=== PATIENT | female | born 1980 | race Caucasian/White ===

== ENCOUNTER → 2018-09-11 | Outpatient (CLI) | payer OTHER | LOC: FIMAGING 08:18 | PROVIDERS: ATTEND Obstetrics & Gynecology | DX: O09.512 Supervision of elderly primigravida, second trimester (principal); Z3A.19 19 weeks gestation of pregnancy ==

== ENCOUNTER → 2018-11-28 | Outpatient (CLI) | payer OTHER | LOC: FIMAGING 08:46 | PROVIDERS: ATTEND Obstetrics & Gynecology | DX: O09.513 Supervision of elderly primigravida, third trimester (principal); Z3A.31 31 weeks gestation of pregnancy ==

== ENCOUNTER 2019-02-01 02:27 | Inpatient (IN) | payer OTHER ==
[2019-02-01 03:29] LABS: PLATELET COUNT 151 10^3/uL (150-400)
--- NOTE | 2019-02-01 05:30 | PDGENHP ---
History and Physical - Chief Complaint presented with decreased movement - History of Present Illness 39 G1 at 40w2d by 9 wk US c/w 24 d cycle, presented to L&D with decreased movement, which has resolved since arrival here. Here - noted to have elevated blood pressures. Good FM, no VB, no LOF. Has had migraines recently, and feels one might be coming on this morning. NO vis changes. No epigastric or RUQ pain. No edema. care with [facility] since 9 weeks. c/b: +AMA - neg NIPT and level 2 US +Uterine fibroids - largest 4 cm at 20 wk US. History Information - Allergies/Home Medication List Allergies/Adverse Reactions: ibuprofen Allergy (Verified 02/01/19 06:47) runny nose itchy eyes I have personally reviewed and updated: family history, medical history, social history, surgical history - Past Medical History GERD (leg fracture age 11) - Surgical History Additional surgical history: oral surgery 2010 - Family History Additional family history: M - at 48 from ovarian cancer, also had depression, high cholesterol. 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 Review of Systems Review of Systems: ROS: 10pt was reviewed & negative except for what was stated in HPI & below Physical Exam Physical Exam: 36.7 61 18 130/90 BPs since 5: 127-160 / 80 - 90 FHR: 135, reactive, Cat 1 toco: some irritability Constitutional: no apparent distress, appears nourished, not in pain Eyes: PERRL, anicteric sclera, EOMI Ears, Nose, Mouth, Throat: moist mucous membranes, hearing normal, ears appear normal, no oral mucosal ulcers Cardiovascular: regular rate and rhythym, no murmur, rub, or gallop Respiratory: no respiratory distress, no rales or rhonchi, clear to auscultation Gastrointestinal: normoactive bowel sounds, soft, non-tender abdomen, no palpable masses Genitourinary: no bladder fullness, other (term gravid uterus, nontender. US confirmed cephalic presentation of fetus) Skin: warm, normal color, mottled Musculoskeletal: full muscle strength, no muscle tenderness Neurologic: AAOx3, sensation intact bilaterally Psychiatric: interacting appropriately, not anxious Lymph, Heme, Immunologic: no cervical LAD Lab Data & Imaging Review 02/01/19 03:15 02/01/19 03:15 WBC 12.44 10^3/uL (3.80-9.50) H 02/01/19 03:15 RBC 4.52 10^6/uL (4.18-5.33) 02/01/19 03:15 Hgb 14.5 g/dL (12.6-16.3) 02/01/19 03:15 Hct 41.8 % (38.0-47.0) 02/01/19 03:15 MCV 92.5 fL (81.5-99.8) 02/01/19 03:15 MCH 32.1 pg (27.9-34.1) 02/01/19 03:15 MCHC 34.7 g/dL (32.4-36.7) 02/01/19 03:15 RDW 13.9 % (11.5-15.2) 02/01/19 03:15 Plt Count 151 10^3/uL (150-400) 02/01/19 03:15 MPV 10.6 fL (8.7-11.7) 02/01/19 03:15 Neut % (Auto) 66.7 % (39.3-74.2) 02/01/19 03:15 Lymph % (Auto) 21.8 % (15.0-45.0) 02/01/19 03:15 Peñuel[place] % (Auto) 6.4 % (4.5-13.0) 02/01/19 03:15 Eos % (Auto) 3.6 % (0.6-7.6) 02/01/19 03:15 Baso % (Auto) 0.3 % (0.3-1.7) 02/01/19 03:15 Nucleat RBC Rel Count 0.0 % (0.0-0.2) 02/01/19 03:15 Absolute Neuts (auto) 8.29 10^3/uL (1.70-6.50) H 02/01/19 03:15 Absolute Lymphs (auto) 2.71 10^3/uL (1.00-3.00) 02/01/19 03:15 Absolute Monos (auto) 0.80 10^3/uL (0.30-0.80) 02/01/19 03:15 Absolute Eos (auto) 0.45 10^3/uL (0.03-0.40) H 02/01/19 03:15 Absolute Basos (auto) 0.04 10^3/uL (0.02-0.10) 02/01/19 03:15 Absolute Nucleated RBC 0.00 10^3/uL (0-0.01) 02/01/19 03:15 Immature Gran % 1.2 % (0.0-1.1) H 02/01/19 03:15 Immature Gran # 0.15 10^3/uL (0.00-0.10) H 02/01/19 03:15 BUN 8 mg/dL (7-23) 02/01/19 03:15 Creatinine 0.5 mg/dL (0.6-1.0) L 02/01/19 03:15 Estimated GFR > 60 02/01/19 03:15 Uric Acid 4.1 mg/dL (2.5-6.8) 02/01/19 03:15 Total Bilirubin 0.6 mg/dL (0.1-1.4) 02/01/19 03:15 Conjugated Bilirubin 0.0 mg/dL (0.0-0.5) 02/01/19 03:15 Unconjugated Bilirubin 0.6 mg/dL (0.0-1.1) 02/01/19 03:15 AST 77 IU/L (14-46) H 02/01/19 03:15 ALT 106 IU/L (9-52) H 02/01/19 03:15 Lactate Dehydrogenase 468 IU/L (313-618) 02/01/19 03:15 Ur Random Creatinine 56.4 mg/dL 02/01/19 04:15 U Random Total Protein 13 mg/dL (0-11) H 02/01/19 04:15 Assessment & Plan Assessment: 39 G1 at 40w2d with elevated BPs and mildly elevated LFTs. Does not meet criteria for preeclampsia as p/c = 0.23. GBS pos Plan - report given to Dr. Duvall who will assume care now at 0730. Pt ate breakfast. Will start induction now - pt agreeable to POC. Buccal misoprostil ordered. PCN ordered for GBS pos. Consider repeating HELLP labs later today. Tara Camacho MD, FACOG
[2019-02-01] MEDS ORDERED: LIDOCAINE 1% 300 MG/30 ML SDV SC PRN (06:39)
[2019-02-01] MEDS ORDERED: MISOPROSTOL 200 MCG TAB PR PRN (06:39)
[2019-02-01] MEDS ORDERED: OLIVE OIL 118 ML BTL MISC PRN (06:39)
[2019-02-01] MEDS ORDERED: EPSOM SALT 454 GM TP PRN (06:39)
[2019-02-01] MEDS ORDERED: OXYTOCIN/RINGERS LACTATE 1,000 ML IV PRN (06:39)
[2019-02-01] MEDS ORDERED: IBUPROFEN 600 MG TAB PO PRN (06:39)
[2019-02-01] MEDS ORDERED: PENICILLIN G POTASSIUM 5,000,000 UNIT in D5W 150 ML IV ONE (06:39)
[2019-02-01] MEDS ORDERED: LIDOCAINE 1% 300 MG/30 ML SDV ONE (07:18)
[2019-02-01] MEDS ORDERED: TERBUTALINE SULFATE 1 MG/ML VIAL ONE (07:19)
[2019-02-01] MEDS ORDERED: OXYTOCIN 10 UNIT/ML VIAL ONE (07:19)
[2019-02-01] MEDS ORDERED: AMMONIA AROMATIC 1 EACH AMP IH ONE (07:19)
[2019-02-01] MEDS ORDERED: MISOPROSTOL 200 MCG TAB ONE (07:19)
[2019-02-01] MEDS ORDERED: OLIVE OIL 118 ML BTL MISC ONE (07:19)
[2019-02-01] MEDS ORDERED: MISOPROSTOL 50 MCG CAP PO PRN (07:23)
[2019-02-01] MEDS: LR 1,000 ML IV PRN (07:49)
[2019-02-01 10:01] LABS: PLATELET COUNT 158 10^3/uL (150-400)
--- NOTE | 2019-02-01 11:41 | OBPROG ---
Labor Progress Note Assessment/Plan: Assessment: Plan: Subjective/Intrapartum Course: 02/01/19 11:39 patient feeling significant cramping and abdominal tightening. labs reviewed. discussed abnormal lfts. bp 130-140/70. status reassuring. discussed indications to start magnesium sulfate. denies headache, changes in vision and ruq pain. will check patient in 30 minutes and discussed next steps. Objective: 02/01/19 09:38 02/01/19 09:38 Patient ABO/Rh B POSITIVE 02/01/19 07:11 Uric Acid 3.7 mg/dL (2.5-6.8) 02/01/19 09:38 Total Bilirubin 0.6 mg/dL (0.1-1.4) 02/01/19 03:15 Conjugated Bilirubin 0.0 mg/dL (0.0-0.5) 02/01/19 03:15 Unconjugated Bilirubin 0.6 mg/dL (0.0-1.1) 02/01/19 03:15 AST 82 IU/L (14-46) H 02/01/19 09:38 ALT 118 IU/L (9-52) H 02/01/19 09:38 Lactate Dehydrogenase 596 IU/L (313-618) 02/01/19 09:38 - SVE Membranes: Intact - Contraction Pattern Assessment Current Contraction Pattern: Irregular Oxytocin Orders Assessment - Pre-Induction/Augmentation Assessment Gestational Age: 40 week(s) and 2 day(s) ICD10 Worksheet Patient Problems: Problems Problem Status Onset Pre-eclampsia, severe Acute (spontaneous vaginal delivery) Acute
[2019-02-01] MEDS: PENICILLIN G POTASSIUM 2,500,000 UNIT in D5W 150 ML IV SCH ×3 (12:10→19:56)
--- NOTE | 2019-02-01 13:21 | OBPROG ---
Labor Progress Note Assessment/Plan: Assessment: Plan: Subjective/Intrapartum Course: 02/01/19 11:39 patient feeling significant cramping and abdominal tightening. labs reviewed. discussed abnormal lfts. bp 130-140/70. status reassuring. discussed indications to start magnesium sulfate. denies headache, changes in vision and ruq pain. will check patient in 30 minutes and discussed next steps. 02/01/19 13:19 patient feeling more contractions. sve 1/50/-2. possible srom. had gush of clear fluid but no pooling and no leaking from cervix with valsalva. discussed options. regino too frequently for another dose of cytotec. cook catheter placed without difficulty. status reassuring. denies headache and changes in vision. blood pressures stable. will augment with pitocin if needed. plans epidural. Objective: 02/01/19 09:38 02/01/19 09:38 Patient ABO/Rh B POSITIVE 02/01/19 07:11 Uric Acid 3.7 mg/dL (2.5-6.8) 02/01/19 09:38 Total Bilirubin 0.6 mg/dL (0.1-1.4) 02/01/19 03:15 Conjugated Bilirubin 0.0 mg/dL (0.0-0.5) 02/01/19 03:15 Unconjugated Bilirubin 0.6 mg/dL (0.0-1.1) 02/01/19 03:15 AST 82 IU/L (14-46) H 02/01/19 09:38 ALT 118 IU/L (9-52) H 02/01/19 09:38 Lactate Dehydrogenase 596 IU/L (313-618) 02/01/19 09:38 - SVE Dilation (cm): 1 Effacement (%): 50 Station: -2 Membranes: SROM (possible) - Contraction Pattern Assessment Current Contraction Pattern: Irregular Oxytocin Orders Assessment - Pre-Induction/Augmentation Assessment Gestational Age: 40 week(s) and 2 day(s) ICD10 Worksheet Patient Problems: Problems Problem Status Onset Pre-eclampsia, severe Acute (spontaneous vaginal delivery) Acute
[2019-02-01] MEDS ORDERED: LR 500 ML IV PRN (13:34)
[2019-02-01] MEDS ORDERED: OXYTOCIN/RINGERS LACTATE 500 ML IV SCH (14:00)
[2019-02-01] MEDS ORDERED: fentaNYL 2MCG/ML/BUP 0.1% RTU 100 ML BAG EP ONE (16:23)
[2019-02-01] MEDS ORDERED: BUPIVACAINE 0.25% 10 ML SDV ONE (16:23)
[2019-02-01] MEDS ORDERED: fentaNYL 100 MCG/2 ML INJ ONE (16:23)
[2019-02-01] MEDS ORDERED: PHENYLEPHRINE HCL 100 MCG/ML SYR ONE (16:24)
[2019-02-01] MEDS ORDERED: PHENYLEPHRINE HCL 100 MCG/ML SYR IVP PRN (17:06)
[2019-02-01] MEDS ORDERED: ONDANSETRON 4 MG/2 ML VIAL IVP PRN (17:06)
--- NOTE | 2019-02-01 17:08 | PDANEPAE ---
ANE Past Medical History - Pulmonary History Hx Sleep Apnea: No ANE Review of Systems Review of Systems: ANE Patient History - Allergies Allergies/Adverse Reactions: ibuprofen Allergy (Verified 02/01/19 06:47) runny nose itchy eyes - Smoking Hx Smoking Status: Never smoked - Alcohol Use Alcohol Use: None ANE Labs/Vital Signs - Labs Result Diagrams: 02/01/19 09:38 02/01/19 09:38 - Vital Signs Height: 162.56 cm Weight: 78.925 kg ANE Physical Exam - Airway Neck exam: FROM Mallampati Score: Class 1 Mouth exam: normal dental/mouth exam - Pulmonary Pulmonary: no respiratory distress - Cardiovascular Cardiovascular: regular rate and rhythym - ASA Status ASA Status: II (mild PIH) ANE Anesthesia Plan Anesthesia Plan: epidural
[2019-02-01] MEDS ORDERED: LR 500 ML IV SCH (17:30)
[2019-02-01] MEDS ORDERED: fentaNYL 2MCG/ML/BUP 0.1% RTU 100 ML EP SCH (17:30)
--- NOTE | 2019-02-01 17:35 | OBPROG ---
Labor Progress Note Assessment/Plan: Assessment: Plan: Subjective/Intrapartum Course: 02/01/19 11:39 patient feeling significant cramping and abdominal tightening. labs reviewed. discussed abnormal lfts. bp 130-140/70. status reassuring. discussed indications to start magnesium sulfate. denies headache, changes in vision and ruq pain. will check patient in 30 minutes and discussed next steps. 02/01/19 13:19 patient feeling more contractions. sve /-2. possible srom. had gush of clear fluid but no pooling and no leaking from cervix with valsalva. discussed options. regino too frequently for another dose of cytotec. cook catheter placed without difficulty. status reassuring. denies headache and changes in vision. blood pressures stable. will augment with pitocin if needed. plans epidural. 02/01/19 17:33 patient comfortable with epidural. cook catheter removed. /-2 with bulging bag of water . arom. large amount of clear fluid. contractions have spaced out. will start pitocin for augmentation. had a few late decelerations following arom. status overall very reassuring. will place iupc if needed. will recheck pih labs. blood pressures stable. denies headache or changes in vision. Objective: 02/01/19 09:38 02/01/19 09:38 Patient ABO/Rh B POSITIVE 02/01/19 07:11 Uric Acid 3.7 mg/dL (2.5-6.8) 02/01/19 09:38 Total Bilirubin 0.6 mg/dL (0.1-1.4) 02/01/19 03:15 Conjugated Bilirubin 0.0 mg/dL (0.0-0.5) 02/01/19 03:15 Unconjugated Bilirubin 0.6 mg/dL (0.0-1.1) 02/01/19 03:15 AST 82 IU/L (14-46) H 02/01/19 09:38 ALT 118 IU/L (9-52) H 02/01/19 09:38 Lactate Dehydrogenase 596 IU/L (313-618) 02/01/19 09:38 - SVE Dilation (cm): 3, 4 Effacement (%): 75 Station: -2 Membranes: AROM - Contraction Pattern Assessment Current Contraction Pattern: Irregular Oxytocin Orders Assessment - Pre-Induction/Augmentation Assessment Gestational Age: 40 week(s) and 2 day(s) ICD10 Worksheet Patient Problems: Problems Problem Status Onset Mild preeclampsia Acute
[2019-02-01 18:05] LABS: PLATELET COUNT 149 10^3/uL (150-400)
[2019-02-01] MEDS ORDERED: MAGNESIUM SULF 4 GM/WATER 100 ML IV ONE (18:48)
[2019-02-01] MEDS ORDERED: CALCIUM GLUC 10% 1 GM/10 ML VIAL IVP PRN (18:48)
--- NOTE | 2019-02-01 18:48 | OBPROG ---
Labor Progress Note Assessment/Plan: Assessment: Plan: Subjective/Intrapartum Course: 02/01/19 11:39 patient feeling significant cramping and abdominal tightening. labs reviewed. discussed abnormal lfts. bp 130-140/70. status reassuring. discussed indications to start magnesium sulfate. denies headache, changes in vision and ruq pain. will check patient in 30 minutes and discussed next steps. 02/01/19 13:19 patient feeling more contractions. sve 50/-2. possible srom. had gush of clear fluid but no pooling and no leaking from cervix with valsalva. discussed options. regino too frequently for another dose of cytotec. cook catheter placed without difficulty. status reassuring. denies headache and changes in vision. blood pressures stable. will augment with pitocin if needed. plans epidural. 02/01/19 17:33 patient comfortable with epidural. cook catheter removed. 75/-2 with bulging bag of water . arom. large amount of clear fluid. contractions have spaced out. will start pitocin for augmentation. had a few late decelerations following arom. status overall very reassuring. will place iupc if needed. will recheck pih labs. blood pressures stable. denies headache or changes in vision. 02/01/19 18:46 contractions spaced out and there was another late deceleration so IUPC and FECG placed without difficulty. pitocin started and is now at 2 mu. status reasuring. labs checked again. lfts still elevated so will start magneisum sulfate. discussed with patient. blood pressures stable. denies headache and changes in vision. patient resting comfortably Objective: 02/01/19 17:55 02/01/19 17:55 Patient ABO/Rh B POSITIVE 02/01/19 07:11 Uric Acid 4.2 mg/dL (2.5-6.8) 02/01/19 17:55 Total Bilirubin 0.6 mg/dL (0.1-1.4) 02/01/19 17:55 Conjugated Bilirubin 0.0 mg/dL (0.0-0.5) 02/01/19 17:55 Unconjugated Bilirubin 0.6 mg/dL (0.0-1.1) 02/01/19 17:55 AST 76 IU/L (14-46) H 02/01/19 17:55 ALT 104 IU/L (9-52) H 02/01/19 17:55 Lactate Dehydrogenase 532 IU/L (313-618) 02/01/19 17:55 - SVE Dilation (cm): 4 Effacement (%): 80 Station: -2 Membranes: AROM Amniotic Fluid Color: Clear - Contraction Pattern Assessment Current Contraction Pattern: Irregular - Procedures Non-surgical Procedures: FSE, IUPC Oxytocin Orders Assessment - Pre-Induction/Augmentation Assessment Gestational Age: 40 week(s) and 2 day(s) ICD10 Worksheet Patient Problems: Problems Problem Status Onset Mild preeclampsia Acute
--- NOTE | 2019-02-01 19:48 | OBPROG ---
Labor Progress Note Assessment/Plan: Assessment: Plan: Subjective/Intrapartum Course: 02/01/19 11:39 patient feeling significant cramping and abdominal tightening. labs reviewed. discussed abnormal lfts. bp 130-140/70. status reassuring. discussed indications to start magnesium sulfate. denies headache, changes in vision and ruq pain. will check patient in 30 minutes and discussed next steps. 02/01/19 13:19 patient feeling more contractions. sve 1/50/-2. possible srom. had gush of clear fluid but no pooling and no leaking from cervix with valsalva. discussed options. regino too frequently for another dose of cytotec. cook catheter placed without difficulty. status reassuring. denies headache and changes in vision. blood pressures stable. will augment with pitocin if needed. plans epidural. 02/01/19 17:33 patient comfortable with epidural. cook catheter removed. 3/75/-2 with bulging bag of water . arom. large amount of clear fluid. contractions have spaced out. will start pitocin for augmentation. had a few late decelerations following arom. status overall very reassuring. will place iupc if needed. will recheck pih labs. blood pressures stable. denies headache or changes in vision. 02/01/19 18:46 contractions spaced out and there was another late deceleration so IUPC and FECG placed without difficulty. pitocin started and is now at 2 mu. status reasuring. labs checked again. lfts still elevated so will start magneisum sulfate. discussed with patient. blood pressures stable. denies headache and changes in vision. patient resting comfortably 02/01/19 19:45 patient still comfortable. pitocin is at 4 mu. patient had two variable decels so i went to examine patient. sve 4-5/80/+1. right after exam fhts had decel to 60s with return to baseline followed by a period of decreased variability. patient was repositioned and fhts returned to normal. long discussion was had with the patient and fob about fhts. will continue pitocin augmentation with close observations. discussed indications for c section. contractions not adequate yet but there is good descent of the head. Objective: 02/01/19 17:55 02/01/19 17:55 Patient ABO/Rh B POSITIVE 02/01/19 07:11 Uric Acid 4.2 mg/dL (2.5-6.8) 02/01/19 17:55 Total Bilirubin 0.6 mg/dL (0.1-1.4) 02/01/19 17:55 Conjugated Bilirubin 0.0 mg/dL (0.0-0.5) 02/01/19 17:55 Unconjugated Bilirubin 0.6 mg/dL (0.0-1.1) 02/01/19 17:55 AST 76 IU/L (14-46) H 02/01/19 17:55 ALT 104 IU/L (9-52) H 02/01/19 17:55 Lactate Dehydrogenase 532 IU/L (313-618) 02/01/19 17:55 - SVE Dilation (cm): 4, 5 Effacement (%): 80 Station: +1 Membranes: AROM Amniotic Fluid Color: Clear - Contraction Pattern Assessment Current Contraction Pattern: Irregular - Procedures Non-surgical Procedures: FSE, IUPC Oxytocin Orders Assessment - Pre-Induction/Augmentation Assessment Gestational Age: 40 week(s) and 2 day(s) ICD10 Worksheet Patient Problems: Problems Problem Status Onset Mild preeclampsia Acute
--- NOTE | 2019-02-01 21:51 | OBPROG ---
Labor Progress Note Assessment/Plan: Assessment: Plan: Subjective/Intrapartum Course: 02/01/19 11:39 patient feeling significant cramping and abdominal tightening. labs reviewed. discussed abnormal lfts. bp 130-140/70. status reassuring. discussed indications to start magnesium sulfate. denies headache, changes in vision and ruq pain. will check patient in 30 minutes and discussed next steps. 02/01/19 13:19 patient feeling more contractions. sve 1/50/-2. possible srom. had gush of clear fluid but no pooling and no leaking from cervix with valsalva. discussed options. regino too frequently for another dose of cytotec. cook catheter placed without difficulty. status reassuring. denies headache and changes in vision. blood pressures stable. will augment with pitocin if needed. plans epidural. 02/01/19 17:33 patient comfortable with epidural. cook catheter removed. 3/75/-2 with bulging bag of water . arom. large amount of clear fluid. contractions have spaced out. will start pitocin for augmentation. had a few late decelerations following arom. status overall very reassuring. will place iupc if needed. will recheck pih labs. blood pressures stable. denies headache or changes in vision. 02/01/19 18:46 contractions spaced out and there was another late deceleration so IUPC and FECG placed without difficulty. pitocin started and is now at 2 mu. status reasuring. labs checked again. lfts still elevated so will start magneisum sulfate. discussed with patient. blood pressures stable. denies headache and changes in vision. patient resting comfortably 02/01/19 19:45 patient still comfortable. pitocin is at 4 mu. patient had two variable decels so i went to examine patient. sve 4-5/80/+1. right after exam fhts had decel to 60s with return to baseline followed by a period of decreased variability. patient was repositioned and fhts returned to normal. long discussion was had with the patient and fob about fhts. will continue pitocin augmentation with close observations. discussed indications for c section. contractions not adequate yet but there is good descent of the head. 02/01/19 21:48 patient comfortable. occasional decels but overall status reassuring. sve 8/90/+1 pitocin is at 8. had 2 variable decels with exam and right after then returned to reassuring. will continue to watch closely Objective: 02/01/19 17:55 02/01/19 17:55 Patient ABO/Rh B POSITIVE 02/01/19 07:11 Uric Acid 4.2 mg/dL (2.5-6.8) 02/01/19 17:55 Total Bilirubin 0.6 mg/dL (0.1-1.4) 02/01/19 17:55 Conjugated Bilirubin 0.0 mg/dL (0.0-0.5) 02/01/19 17:55 Unconjugated Bilirubin 0.6 mg/dL (0.0-1.1) 02/01/19 17:55 AST 76 IU/L (14-46) H 02/01/19 17:55 ALT 104 IU/L (9-52) H 02/01/19 17:55 Lactate Dehydrogenase 532 IU/L (313-618) 02/01/19 17:55 - SVE Dilation (cm): 8 Effacement (%): 90 Station: +1 Membranes: AROM Amniotic Fluid Color: Clear - Contraction Pattern Assessment Current Contraction Pattern: Irregular - Procedures Non-surgical Procedures: FSE, IUPC - AP Antepartum Course: 02/01/19 21:51 initiated care a [facility] at 8 weeks. fibroids noted. negative innatal testing. normal level 2 us. presented to l and d in the middle of then night for decreased movement. found to have elevated blood pressures and elevated lfts. Oxytocin Orders Assessment - Pre-Induction/Augmentation Assessment Gestational Age: 40 week(s) and 2 day(s) ICD10 Worksheet Patient Problems: Problems Problem Status Onset Mild preeclampsia Acute
--- NOTE | 2019-02-01 23:14 | OBDEL ---
Info Type: Vaginal Presentation at Delivery: Vertex L&D Analgesia/Anesthesia Type: Epidural GBS+: Yes Antibiotic Used for + GBS: Ampicillin Intrapartum Medications: Generic Name Dose Route Start Last Admin Trade Name Freq PRN Reason Stop Dose Admin Lactated Ringer's 1,000 mls @ 0 mls/hr 02/01/19 06:39 02/01/19 07:49 Lr IV 02/02/19 06:38 1,000 mls PRN PRN Administration SEE PROTOCOL CONDITIONS Protocol Per Protocol Penicillin G Potassium 2,500, 155 mls @ 155 mls/hr 02/01/19 11:00 02/01/19 19 :56 000 unit/ Dextrose IV 03/03/19 10:59 155 mls Q4H JAYE Administration Protocol Misoprostol 50 mcg 02/01/19 07:23 02/01/19 07:43 Cytotec PO 07/31/19 07:22 50 mcg PRN PRN Administration unfavorable cervix Discontinued Medications Generic Name Dose Route Start Last Admin Trade Name Freq PRN Reason Stop Dose Admin Penicillin G Potassium 5,000, 160 mls @ 160 mls/hr 02/01/19 06:39 02/01/19 07 :49 000 unit/ Dextrose IV 02/01/19 07:38 160 mls ONCE ONE Administration Protocol - Hospital Course Intrapartum: 02/01/19 11:39 patient feeling significant cramping and abdominal tightening. labs reviewed. discussed abnormal lfts. bp 130-140/70. status reassuring. discussed indications to start magnesium sulfate. denies headache, changes in vision and ruq pain. will check patient in 30 minutes and discussed next steps. 02/01/19 13:19 patient feeling more contractions. sve 150/-2. possible srom. had gush of clear fluid but no pooling and no leaking from cervix with valsalva. discussed options. regino too frequently for another dose of cytotec. cook catheter placed without difficulty. status reassuring. denies headache and changes in vision. blood pressures stable. will augment with pitocin if needed. plans epidural. 02/01/19 17:33 patient comfortable with epidural. cook catheter removed. /-2 with bulging bag of water . arom. large amount of clear fluid. contractions have spaced out. will start pitocin for augmentation. had a few late decelerations following arom. status overall very reassuring. will place iupc if needed. will recheck pih labs. blood pressures stable. denies headache or changes in vision. 02/01/19 18:46 contractions spaced out and there was another late deceleration so IUPC and FECG placed without difficulty. pitocin started and is now at 2 mu. status reasuring. labs checked again. lfts still elevated so will start magneisum sulfate. discussed with patient. blood pressures stable. denies headache and changes in vision. patient resting comfortably 02/01/19 19:45 patient still comfortable. pitocin is at 4 mu. patient had two variable decels so i went to examine patient. sve 4-5/80/+1. right after exam fhts had decel to 60s with return to baseline followed by a period of decreased variability. patient was repositioned and fhts returned to normal. long discussion was had with the patient and fob about fhts. will continue pitocin augmentation with close observations. discussed indications for c section. contractions not adequate yet but there is good descent of the head. 02/01/19 21:48 patient comfortable. occasional decels but overall status reassuring. sve 8/90/+1 pitocin is at 8. had 2 variable decels with exam and right after then returned to reassuring. will continue to watch closely 02/01/19 23:13 severe variable decels with pushing. pushed with 6 contractions and delivered Indications for Delivery: Preeclampsia Severe Vaginal Delivery - Delivery Provider Delivery Physician/CNM: Ilana Duvall - Labor and Delivery Onset of Contractions Date: 02/01/19 Onset of Contractions Time: 17:04 Onset of Contractions Type: Induced Rupture of Membranes Date: 02/01/19 Rupture of Membranes Time: 17:04 Rupture of Membranes Type: Artificial Amniotic Fluid Color: Clear Dilation Complete Date: 02/01/19 Dilation Complete Time: 22:13 Placenta Delivery Date: 02/01/19 Placenta Delivery Time: 22:43 Total Hours of Labor: 5 Non-surgical Procedures: FSE, IUPC Laceration: 2nd Degree, Other (Specify) (right vaginal sulcus and right labial) Repair: 3-0 Vaginal Sponge Count Correct: Yes Vaginal Needle Count Correct: Yes Vaginal Sweep Performed: Yes Delivery Events: Nuchal Cord Delivery Comment: severe variable decels while pushing. made good progress. pushed for less than 30 minutes. sutay pressing machine operator. - Medications Labor Augmentation/Induction Methods Used: Pitocin, Misoprostol, Briseno Bulb Labor Augmentation/Induction Indication: Other (Specify) (preeclampsia) Data SEAN: 01/30/19 Gestational Age: 40 week(s) and 2 day(s) House Delivery Date: 02/01/19 Delivery Time: 22:43 Sex of : Female Score (1 Min): 8 Score (5 Min): 9 ICD10 Worksheet Patient Problems: Problems Problem Status Onset Mild preeclampsia Acute
[2019-02-01] MEDS ORDERED: DOCUSATE SODIUM 100 MG CAP PO PRN (23:16)
[2019-02-01] MEDS ORDERED: oxyCODONE IR 5 MG TAB PO PRN (23:16)
[2019-02-01] MEDS ORDERED: SIMETHICONE 80 MG TAB CHEW PO PRN (23:16)
[2019-02-01] MEDS ORDERED: HYDROCORTISONE 0.5% CREAM TP PRN (23:16)
[2019-02-01] MEDS ORDERED: MAGNESIUM SULF 4 GM/WATER 100 ML BAG IV ONE (23:25)
[2019-02-02] MEDS: LR 1,000 ML IV PRN ×2 (00:24→19:57)
[2019-02-02] MEDS: Mag Sulf 500 ML IV SCH ×3 (00:27→20:24)
[2019-02-02] MEDS: PENICILLIN G POTASSIUM 2,500,000 UNIT in D5W 150 ML IV SCH (02:53)
[2019-02-02 06:07] LABS: PLATELET COUNT 161 10^3/uL (150-400)
[2019-02-02] MEDS: ACETAMINOPHEN 325 MG TAB PO PRN ×3 (10:11→19:57)
--- NOTE | 2019-02-02 13:07 | POSTANESTH ---
Post Anesthetic Evaluation Cardiovascular Status: Normal, Stable Respiratory Status: Normal, Stable Level of Consciousness/Mental Status: Can Participate in Eval Pain Control: Adequate, Prn Tx Ordered Nausea/Vomiting Control: Adequate, Prn Tx Ordered Complications Possibly Related to Anesthesia: None Noted (no adverse effects from BLAKE)
--- NOTE | 2019-02-02 16:25 | OBPP ---
Progress Note Assessment/Plan: Assessment: s/p severe preeclampsia on magnesium - labs all trending down, vitals looking good good UOP asymptomatic Plan: cont magnesium until 10:30 and then allow to drink water/reg diet/amb/cath out etc 02/02/19 16:11 Subjective/ Course: 02/02/19 16:24 Pt doing well. has had couple good latches with baby - recently baby is very sleepy. Pt denies severe GARCIA or nausea or RUQ pain. kelsy magnesium ok except hot. bld has been normal. good UOP. reassured pt that labs all showed improvement. b/p have been good Objective: 02/02/19 05:55 02/02/19 05:55 Patient ABO/Rh B POSITIVE 02/01/19 07:11 Uric Acid 4.9 mg/dL (2.5-6.8) 02/02/19 05:55 Total Bilirubin 0.6 mg/dL (0.1-1.4) 02/01/19 17:55 Conjugated Bilirubin 0.0 mg/dL (0.0-0.5) 02/01/19 17:55 Unconjugated Bilirubin 0.6 mg/dL (0.0-1.1) 02/01/19 17:55 AST 55 IU/L (14-46) H 02/02/19 05:55 ALT 81 IU/L (9-52) H 02/02/19 05:55 Lactate Dehydrogenase 639 IU/L (313-618) H 02/02/19 05:55 Temp Pulse Resp BP Pulse Ox 37.2 C 102/60 92 02/02/19 13:50 02/02/19 14:58 02/02/19 15:55 Uterine Position/Fundal Height: Umbilicus -1 Uterine Tone: Firm Physical Exam - Physical Exam Abdomen: non-tender, soft, other (FF at umb -1) Extremities: non-tender, pedal edema (minimal) Skin: normal color, warm/dry Neuro/Psych: alert, normal mood/affect
[2019-02-03] MEDS: ACETAMINOPHEN 325 MG TAB PO PRN ×2 (06:48→11:48)
--- NOTE | 2019-02-03 11:51 | OBPP ---
Progress Note Assessment/Plan: Assessment: 1) s/p PPD #2 - pt is stable 2) Severe preeclampsia - s/p MgSO4 x 24 hrs Plan: BPs stable; PIH labs trending down Pt diuresing well and asymptomatic Plan for d/c home later today Instructions reviewed with pt No Rx given Cont PNV Pelvic rest RTC in 1 week for BP check, 3 weeks for a mood check, and 6 weeks for a pp check 02/03/19 11:47 Subjective/ Course: 02/02/19 16:24 Pt doing well. has had couple good latches with baby - recently baby is very sleepy. Pt denies severe GARCIA or nausea or RUQ pain. kelsy magnesium ok except hot. bld has been normal. good UOP. reassured pt that labs all showed improvement. b/p have been good 02/03/19 11:49 Pt seen and examined. Doing well, feels much better off the magnesium. Slight GRACIA this am, usually resolves with Tylenol and water. Denies any visual changes, RUQ/epigastric pain. Mild cramping, relief with po meeds. Mod lochia. Pt is OOB , kelsy regular diet, voiding without difficulty and had small BM last night. No f /c/nn/v. BF is going well. Excited to go home. Objective: 02/02/19 05:55 02/02/19 05:55 Patient ABO/Rh B POSITIVE 02/01/19 07:11 Uric Acid 4.9 mg/dL (2.5-6.8) 02/02/19 05:55 Total Bilirubin 0.6 mg/dL (0.1-1.4) 02/01/19 17:55 Conjugated Bilirubin 0.0 mg/dL (0.0-0.5) 02/01/19 17:55 Unconjugated Bilirubin 0.6 mg/dL (0.0-1.1) 02/01/19 17:55 AST 55 IU/L (14-46) H 02/02/19 05:55 ALT 81 IU/L (9-52) H 02/02/19 05:55 Lactate Dehydrogenase 639 IU/L (313-618) H 02/02/19 05:55 Temp Pulse Resp BP Pulse Ox 36.7 C 69 16 121/83 H 94 02/03/19 08:09 02/03/19 08:09 02/03/19 08:09 02/03/19 08:09 02/03/19 08:09 Uterine Position/Fundal Height: Umbilicus -2 Uterine Tone: Firm Physical Exam - Physical Exam General Appearance: WD/WN, alert, no apparent distress Respiratory: lungs clear, normal breath sounds Cardiac/Chest: regular rate, rhythm Abdomen: normal bowel sounds, non-tender, soft, flatus (+) Extremities: non-tender, normal inspection DTR- Lower Extremities: Plantar (R): 2+, Plantar (L): 2+ Skin: normal color, warm/dry Neuro/Psych: alert, normal mood/affect, oriented x 3
--- NOTE | 2019-02-03 11:52 | OBGCSDC ---
General Delivery Information - General Info : 1 Para: 1 Abortions: 0 Type: Vaginal L&D Analgesia/Anesthesia Type: Epidural Admission Date: 02/01/19 Labs: Patient ABO/Rh B POSITIVE 02/01/19 07:11 Hct 37.4 % (38.0-47.0) L 02/02/19 05:55 Temp Pulse Resp BP Pulse Ox 02/03/19 08:09 36.7 C 69 16 121/83 H 94 02/03/19 04:36 83 16 110/68 93 02/03/19 02:03 80 16 114/70 93 02/02/19 23:00 94 02/02/19 22:59 111/76 94 02/02/19 22:51 126/78 H 94 02/02/19 22:00 94 02/02/19 21:58 120/72 94 02/02/19 21:00 97 02/02/19 20:59 101/76 95 02/02/19 20:00 96 02/02/19 19:59 114/73 97 02/02/19 19:30 94 02/02/19 19:25 94 02/02/19 19:20 94 02/02/19 19:15 94 02/02/19 19:10 94 02/02/19 19:05 92 02/02/19 19:00 94 02/02/19 18:59 123/63 H 94 02/02/19 18:55 93 02/02/19 18:50 95 02/02/19 18:45 96 02/02/19 18:40 96 02/02/19 18:35 97 02/02/19 18:30 97 02/02/19 18:25 97 02/02/19 18:20 97 02/02/19 18:15 96 02/02/19 18:10 98 02/02/19 18:05 97 02/02/19 18:00 96 02/02/19 17:59 100/74 96 02/02/19 17:55 97 02/02/19 17:50 95 02/02/19 17:45 95 02/02/19 17:40 95 02/02/19 17:35 96 02/02/19 17:30 97 02/02/19 17:25 97 02/02/19 17:20 94 02/02/19 17:15 95 02/02/19 17:10 93 02/02/19 17:05 93 02/02/19 17:00 94 02/02/19 16:55 95 02/02/19 16:50 96 02/02/19 16:45 99 02/02/19 16:40 93 02/02/19 16:35 93 02/02/19 16:30 93 02/02/19 16:25 93 02/02/19 16:20 94 02/02/19 16:15 92 02/02/19 16:10 92 02/02/19 16:05 90 L 02/02/19 16:00 93 02/02/19 15:59 111/72 92 02/02/19 15:55 92 02/02/19 15:50 94 02/02/19 15:45 93 02/02/19 15:40 93 02/02/19 15:35 93 02/02/19 15:30 94 02/02/19 15:25 94 02/02/19 15:20 93 02/02/19 15:15 93 02/02/19 15:10 94 02/02/19 15:05 92 02/02/19 15:00 92 02/02/19 14:58 102/60 93 02/02/19 14:55 92 02/02/19 14:50 91 L 02/02/19 14:45 92 02/02/19 14:40 95 02/02/19 14:35 96 02/02/19 14:30 97 02/02/19 14:25 97 02/02/19 14:20 96 02/02/19 14:15 96 02/02/19 14:10 93 02/02/19 14:05 95 02/02/19 14:00 97 02/02/19 13:59 108/72 96 02/02/19 13:55 92 02/02/19 13:50 37.2 C 94 02/02/19 13:45 93 02/02/19 13:40 94 02/02/19 13:35 95 02/02/19 13:30 94 02/02/19 13:25 93 02/02/19 13:20 95 02/02/19 13:15 95 02/02/19 13:10 94 02/02/19 13:05 94 02/02/19 13:00 94 02/02/19 12:58 106/72 93 02/02/19 12:55 92 02/02/19 12:50 91 L 02/02/19 12:45 91 L 02/02/19 12:40 92 02/02/19 12:35 92 02/02/19 12:30 93 02/02/19 12:25 93 02/02/19 12:20 93 02/02/19 12:15 92 02/02/19 12:10 95 02/02/19 12:05 94 02/02/19 12:01 94 02/02/19 12:00 123/75 H 93 02/02/19 11:55 94 - Hospital Course Antepartum: 02/01/19 21:51 initiated care a [facility] at 8 weeks. fibroids noted. negative innatal testing. normal level 2 us. presented to l and d in the middle of then night for decreased movement. found to have elevated blood pressures and elevated lfts. Intrapartum: 02/01/19 11:39 patient feeling significant cramping and abdominal tightening. labs reviewed. discussed abnormal lfts. bp 130-140/70. status reassuring. discussed indications to start magnesium sulfate. denies headache, changes in vision and ruq pain. will check patient in 30 minutes and discussed next steps. 02/01/19 13:19 patient feeling more contractions. sve /-2. possible srom. had gush of clear fluid but no pooling and no leaking from cervix with valsalva. discussed options. regino too frequently for another dose of cytotec. cook catheter placed without difficulty. status reassuring. denies headache and changes in vision. blood pressures stable. will augment with pitocin if needed. plans epidural. 02/01/19 17:33 patient comfortable with epidural. cook catheter removed. /-2 with bulging bag of water . arom. large amount of clear fluid. contractions have spaced out. will start pitocin for augmentation. had a few late decelerations following arom. status overall very reassuring. will place iupc if needed. will recheck pih labs. blood pressures stable. denies headache or changes in vision. 02/01/19 18:46 contractions spaced out and there was another late deceleration so IUPC and FECG placed without difficulty. pitocin started and is now at 2 mu. status reasuring. labs checked again. lfts still elevated so will start magneisum sulfate. discussed with patient. blood pressures stable. denies headache and changes in vision. patient resting comfortably 02/01/19 19:45 patient still comfortable. pitocin is at 4 mu. patient had two variable decels so i went to examine patient. sve 4-5/80/+1. right after exam fhts had decel to 60s with return to baseline followed by a period of decreased variability. patient was repositioned and fhts returned to normal. long discussion was had with the patient and fob about fhts. will continue pitocin augmentation with close observations. discussed indications for c section. contractions not adequate yet but there is good descent of the head. 02/01/19 21:48 patient comfortable. occasional decels but overall status reassuring. sve 8/90/+1 pitocin is at 8. had 2 variable decels with exam and right after then returned to reassuring. will continue to watch closely 02/01/19 23:13 severe variable decels with pushing. pushed with 6 contractions and delivered : 02/02/19 16:24 Pt doing well. has had couple good latches with baby - recently baby is very sleepy. Pt denies severe GARCIA or nausea or RUQ pain. kelsy magnesium ok except hot. bld has been normal. good UOP. reassured pt that labs all showed improvement. b/p have been good 02/03/19 11:49 Pt seen and examined. Doing well, feels much better off the magnesium. Slight GARCIA this am, usually resolves with Tylenol and water. Denies any visual changes, RUQ/epigastric pain. Mild cramping, relief with po meeds. Mod lochia. Pt is OOB , kelsy regular diet, voiding without difficulty and had small BM last night. No f /c/nn/v. BF is going well. Excited to go home. Vaginal - Delivery Provider Delivery Physician/CNM: Ilana Duvall - Diagnosis Labor: Induced Rupture of Membranes Type: Artificial Amniotic Fluid Color: Clear Laceration: 2nd Degree, Other (Specify) (right vaginal sulcus and right labial) Repair: 3-0 Delivery Events: Nuchal Cord - Procedures Non-surgical Procedures: FSE, IUPC - Delivery Non-surgical Procedures: FSE, IUPC [place] Data SEAN: 01/30/19 Gestational Age: 40 week(s) and 4 day(s) House Delivery Date: 02/02/19 Delivery Time: 22:43 Sex of Infant: Female Weight (gm): 3112 kg Score (1 Min): 8 Score (5 Min): 9 Discharge Information - Discharge Information Condition: Good Instruction/Follow Up: One Week (for a BP check), Four Weeks (3 weeks for a mood check), Six Weeks (for a routine pp check)
[2019-02-03 11:58] VITALS: BP 122/74
== END 2019-02-03 15:00 | disposition home or self-care (01) | DRG 807 ==
LOC: FLD 02:27 → OBSVTOIN 06:42 → FLD 13:32
PROVIDERS: ADMIT Hospitalist; ATTEND Hospitalist
DX: O14.24 HELLP syndrome, complicating childbirth (principal); Z37.0 Single live birth; O99.824 Streptococcus B carrier state complicating childbirth; Z3A.40 40 weeks gestation of pregnancy; O70.1 Second degree perineal laceration during delivery
CPT/HCPCS: J0610; J2370; J2540; J2590; J3010; J3105; J3475

== ENCOUNTER → 2019-02-12 | Outpatient (CLI) | payer OTHER | LOC: FLACT 09:54 ==